=== PATIENT | female | born 1955 | race Caucasian/White ===

== ENCOUNTER 2023-11-25 09:47 | Observation (INO) | payer MEDICARE ==
[2023-11-25 10:55] LABS: BASOPHILS PERCENT AUTO 0.5 % (0.1-1.3); EOSINOPHILS PERCENT AUTO 0.5 % (0.0-5.4); HEMATOCRIT 27.9 % (34.3-46.0); IMMATURE GRAN PERCENT AUTO 0.3 % (0.0-0.7); LYMPHOCYTES ABSOLUTE AUTO 1.06 K/uL (0.8-3.3); LYMPHOCYTES PERCENT AUTO 26.9 % (11.4-47.7); MEAN CORPUSCULAR HEMOGLOBIN 39.2 pg (31.6-35.5); MEAN CORPUSCULAR HGB CONC 35.8 g/dL (31.6-35.5); MEAN CORPUSCULAR VOLUME 109.4 fL (81.4-99.0); MONOCYTES PERCENT AUTO 5.1 % (3.3-12.6); NEUTROPHILS ABSOLUTE AUTO 2.63 K/uL (1.0-7.6); NEUTROPHILS PERCENT AUTO 66.7 % (40.0-78.1); PLATELET COUNT,PLT 46 K/uL (130-375); RED BLOOD CELL COUNT 2.55 M/uL (3.77-5.24); WHITE BLOOD CELL COUNT,WBC 3.9 K/uL (3.2-11.0)
[2023-11-25 10:56] LABS: BASOPHILS ABSOLUTE AUTO 0.02 K/uL (0.00-0.10); EOSINOPHILS ABSOLUTE AUTO 0.02 K/uL (0.00-0.40); IMMATURE GRAN ABSOLUTE AUTO 0.01 K/uL (0.00-0.23)
[2023-11-25] MEDS: HYDROmorphone 0.5 MG/0.5 ML Syringe IVPUSH ONE ×2 (11:17→13:16)
[2023-11-25] MEDS: Ondansetron 4 MG/2 ML SDV IVPUSH ONE ×2 (11:17→13:20)
[2023-11-25 11:19] LABS: A/G RATIO 0.9 (1.2-2.2); ALANINE AMINOTRANSFERASE,ALT 68 U/L (12-78); ALBUMIN 3.2 g/dL (3.4-5.0); ALKALINE PHOSPHATASE 246 U/L (46-116); ASPARTATE AMNIOTRANSFERASE,AST 62 U/L (15-37); BILIRUBIN TOTAL 0.7 mg/dL (0.2-1.0); BLOOD UREA NITROGEN,BUN 12 mg/dL (7-18); CALCIUM 8.5 mg/dL (8.5-10.1); CARBON DIOXIDE,CO2 29 mmol/L (21-32); CHLORIDE,CL 108 mmol/L (100-108); CREATININE 0.7 mg/dL (0.6-1.0); EST CRCL DRUG DOSING (CG) 71.01 mL/min; ESTIMATED GFR 94 mL/min (>60); GLUCOSE RANDOM 122 mg/dL (74-106); PROTEIN TOTAL,TP 6.7 g/dL (6.4-8.2); SODIUM,NA 145 mmol/L (140-148)
[2023-11-25 11:25] LABS: APPEARANCE,URINE CLEAR (CLEAR); BILIRUBIN,URINE NEGATIVE (NEGATIVE); COLOR,URINE YELLOW (YELLOW); GLUCOSE,URINE NEGATIVE (NEGATIVE); KETONES,URINE 15 mg/dL (NEGATIVE); LEUKOCYTE ESTERASE,URINE NEGATIVE (NEGATIVE); NITRITE,URINE NEGATIVE (NEGATIVE); OCCULT BLOOD,URINE NEGATIVE (NEGATIVE); PH,URINE 6.5 (5.0-8.0); PROTEIN,URINE NEGATIVE (NEGATIVE); UROBILINOGEN,URINE 0.2 EU/dL (0.2-1.0)
[2023-11-25 11:29] LABS: AMORPHOUS SEDIMENT,URINE NOT SEEN; BACTERIA,URINE NOT SEEN; EPITHELIAL CELLS,URINE FEW; MUCUS,URINE MODERATE; RBC,URINE 0-5 (0-5); WBC,URINE 0-5 (0-5)
[2023-11-25] MEDS: Sodium Chloride 0.9% 1,000 ML IV SCH ×2 (11:31→13:00)
[2023-11-25] MEDS ORDERED: Sodium Chloride 0.9% 10 ML Syringe FLUSH PRN (11:45)
[2023-11-25] MEDS: Iopamidol 612 MG/ML 100 ML Bottle IV SCH (13:33)
[2023-11-25] MEDS: Sodium Chloride 0.9% 100 ML IV SCH (13:33)
[2023-11-25] MEDS: Prochlorperazine 10 MG/2 ML SDV IVPUSH ONE (15:21)
[2023-11-25] MEDS ORDERED: Magnesium Hydroxide 400 MG/5 ML Susp 30 ML Cup PO PRN (17:00)
[2023-11-25] MEDS ORDERED: Ondansetron 4 MG Tab.DIS PO PRN (17:00)
[2023-11-25] MEDS ORDERED: LORazepam 2 MG/ML SDV IVPUSH PRN (17:00)
[2023-11-25] MEDS ORDERED: Sennosides/Docusate Sodium 50-8.6 MG Tab PO PRN (17:00)
[2023-11-25] MEDS ORDERED: Prochlorperazine 10 MG Tab PO PRN (17:00)
[2023-11-25] MEDS ORDERED: Ondansetron 4 MG/2 ML SDV IV PRN (17:00)
[2023-11-25] MEDS ORDERED: HYDROmorphone 1 MG/ML Syringe IVPUSH PRN (17:00)
[2023-11-25] MEDS ORDERED: Acetaminophen 325 MG Tab PO PRN (17:00)
[2023-11-25] MEDS: Potassium Chloride 10 MEQ in Premix Bag 1 BAG IV SCH (17:40)
[2023-11-25] MEDS: NS + KCl 20mEq/L 1,000 ML IV SCH (20:10)
[2023-11-25] MEDS ORDERED: [UNRECOGNIZED DRUG - OTHER] PO SCH (21:00)
[2023-11-26] MEDS: HYDROmorphone 2 MG Tab PO PRN (00:41)
[2023-11-26 05:02] LABS: HEMATOCRIT 26.1 % (34.3-46.0); HEMOGLOBIN 9.2 g/dL (11.2-15.5); MEAN CORPUSCULAR HGB CONC 35.2 g/dL (31.6-35.5); MEAN CORPUSCULAR VOLUME 110.6 fL (81.4-99.0); RED BLOOD CELL COUNT 2.36 M/uL (3.77-5.24); WHITE BLOOD CELL COUNT,WBC 4.5 K/uL (3.2-11.0)
[2023-11-26 05:27] LABS: A/G RATIO 0.9 (1.2-2.2); ALANINE AMINOTRANSFERASE,ALT 77 U/L (12-78); ALBUMIN 2.5 g/dL (3.4-5.0); ALKALINE PHOSPHATASE 228 U/L (46-116); ASPARTATE AMNIOTRANSFERASE,AST 70 U/L (15-37); BILIRUBIN TOTAL 0.5 mg/dL (0.2-1.0); BLOOD UREA NITROGEN,BUN 8 mg/dL (7-18); CALCIUM 7.6 mg/dL (8.5-10.1); CARBON DIOXIDE,CO2 28 mmol/L (21-32); CHLORIDE,CL 110 mmol/L (100-108); CREATININE 0.7 mg/dL (0.6-1.0); EST CRCL DRUG DOSING (CG) 71.01 mL/min; ESTIMATED GFR 94 mL/min (>60); GLUCOSE RANDOM 106 mg/dL (74-106); POTASSIUM,K 3.6 mmol/L (3.6-5.2); PROTEIN TOTAL,TP 5.4 g/dL (6.4-8.2); SODIUM,NA 145 mmol/L (140-148)
[2023-11-26 05:28] LABS: ANION GAP 10.6 mmol/L (5.0-14.0)
[2023-11-26] MEDS: Cholecalciferol (Vitamin D3) 25 MCG Tab PO SCH (08:51)
[2023-11-26] MEDS: Lactobacillus Rhamnosus GG (Probiotic) Cap PO SCH (08:51)
[2023-11-26] MEDS: Potassium Chloride 20 MEQ Tab.ER PO SCH (08:51)
[2023-11-26] MEDS: Aspirin 81 MG Tab.Chew PO SCH (08:51)
[2023-11-26] MEDS: amLODIPine 5 MG Tab PO SCH (09:00)
[2023-11-26] MEDS ORDERED: DHA PO SCH (09:00)
[2023-11-26] MEDS ORDERED: [UNRECOGNIZED DRUG - OTHER] PO SCH (09:00)
[2023-11-26] MEDS ORDERED: OMEGA PO SCH (09:00)
[2023-11-26] MEDS ORDERED: D3 PO SCH (09:00)
[2023-11-26] MEDS ORDERED: EPA PO SCH (09:00)
[2023-11-26] MEDS ORDERED: HYDROmorphone 0.5 MG/0.5 ML Syringe IVPUSH PRN (09:53)
[2023-11-26] MEDS: [UNRECOGNIZED DRUG - OTHER] PO SCH (10:22)
== END 2023-11-26 14:16 | disposition home or self-care (01) ==
LOC: JP.ED 09:47 → JP.ICU 15:40
PROVIDERS: ADMIT Internal Medicine; ATTEND Internal Medicine
DX: C7A.8 Other malignant neuroendocrine tumors (principal); C7B.8 Other secondary neuroendocrine tumors; I10 Essential (primary) hypertension; E03.9 Hypothyroidism, unspecified; Z79.890 Hormone replacement therapy; Z79.82 Long term (current) use of aspirin; Z79.899 Other long term (current) drug therapy; Z88.0 Allergy status to penicillin
CPT/HCPCS: 36415; 74177; 80053; 81001; 85025; 85027; 86140; 99222; 99238; A9270; J0780; J1170; J2405; J3480; J3490; J7030; Q9967; 93010; 96361; 96374; 96375; 96376; 99285; 99285-25